=== PATIENT | female | born 1940 | race Caucasian/White ===

== ENCOUNTER 2018-05-17 10:06 | Emergency (ER) | payer MEDICARE, BC ==
[~2018-05-17] VITALS: Ht 162.6 cm; Wt 60.6 kg
[2018-05-17] MEDS ORDERED: HYDROcodone/acetaminophen 10/325mg tab PO ONE (10:35)
[2018-05-17] MEDS ORDERED: HYDR-565 PO (10:56)
[2018-05-17 11:27] VITALS: BP 168/75
== END 2018-05-17 11:32 | disposition home or self-care (01) ==
LOC: ER 10:07
DX: S40.011A Contusion of right shoulder, initial encounter (principal); S20.211A Contusion of right front wall of thorax, initial encounter; I10 Essential (primary) hypertension; Z79.899 Other long term (current) drug therapy; W18.39XA Other fall on same level, initial encounter; Y93.89 Activity, other specified; Y92.89 Other specified places as the place of occurrence of the external cause; Y99.8 Other external cause status
CPT/HCPCS: 73030; 99284; A4565

== ENCOUNTER 2018-07-22 20:49 | Emergency (ER) | payer MEDICARE, BC ==
[~2018-07-22] VITALS: Ht 167.6 cm; Wt 51.0 kg
[2018-07-22] MEDS ORDERED: aspirin 81mg tab.chew PO ONE (21:15)
[2018-07-22] MEDS ORDERED: diltiazem 5mg/ml 5ml inj. IV ONE (21:15)
[2018-07-22 21:22] LABS: BASOPHILS # (AUTO) 0.1 X10'3 (0-0.2); BASOPHILS % (AUTO) 0.7 % (0-1); EOSINOPHILS # (AUTO) 0.1 X10'3 (0-0.9); EOSINOPHILS % (AUTO) 2.1 % (0-6); HEMATOCRIT 41.7 % (35.0-45.0); HEMOGLOBIN 13.9 g/dl (12.0-16.0); LYMPHOCYTES # (AUTO) 2.2 X10'3 (1.1-4.8); LYMPHOCYTES % (AUTO) 31.5 % (21-51); MEAN CORPUSCULAR HEMOGLOBIN 30.4 PG (27.0-31.0); MEAN CORPUSCULAR HGB CONC 33.3 % (33.0-36.5); MEAN CORPUSCULAR VOLUME 91.3 FL (78-98); MEAN PLATELET VOLUME 7.2 FL (7.4-10.4); MONOCYTES # (AUTO) 0.6 X10'3 (0-0.9); NEUTROPHILS % (AUTO) 56.7 % (42-75); PLATELET COUNT 326 X10'3 (140-440); RED BLOOD COUNT 4.57 X10'6 (4.20-5.60); RED CELL DISTRIBUTION WIDTH 15.6 % (11.5-14.5)
[2018-07-22 21:41] LABS: ALANINE AMINOTRANSFERASE 23 U/L (12-78); ALBUMIN 4.6 G/DL (3.4-5.0); ALKALINE PHOSPHATASE 96 IU/L (46-116); ANION GAP 15 (8-16); ASPARTATE AMINO TRANSFERASE 25 U/L (10-37); BILIRUBIN,TOTAL 0.6 MG/DL (0.1-1.0); BLOOD UREA NITROGEN 8 MG/DL (7-18); BUN/CREATININE RATIO 10.5 (6.6-38.0); CALCIUM 10.2 MG/DL (8.5-10.1); CHLORIDE 96 MMOL/L (99-107); CREATININE 0.76 MG/DL (0.40-0.90); GLUCOSE 129 MG/DL (70-104); MAGNESIUM 1.8 MG/DL (1.5-2.4); POTASSIUM 3.4 MMOL/L (3.5-5.1); SODIUM 134 MMOL/L (135-145); TOTAL CARBON DIOXIDE 23.2 MMOL/L (24-32); TOTAL PROTEIN 9.1 G/DL (6.4-8.2); eGFR 73 ML/MIN
[2018-07-22 21:48] LABS: PARTIAL THROMBOPLASTIN TIME 26 SECONDS (22-32); PROTHROMBIN TIME 10.4 SECONDS (9.0-12.0)
[2018-07-22] MEDS ORDERED: metoprolol tartrate 50mg tablet PO ONE (22:35)
[2018-07-22] MEDS ORDERED: magnesium oxide 400mg tablet PO ONE (22:35)
[2018-07-22] MEDS ORDERED: potassium Cl 20 mEq SR tablet PO ONE (22:35)
[2018-07-22] MEDS ORDERED: potassium 10mEq/100ml NS w/LIDOcaine (10mg/bag) IV ONE (22:35)
[2018-07-22] MEDS: magnesium 1gm/100ml D5W IVPB 100 ML IV SCH ×2 (22:44→23:35)
[2018-07-22] MEDS: diphenhydrAMINE 50 mg/ml inj IV ONE ×2 (22:47→23:52)
[2018-07-22 23:08] VITALS: BP 195/106
== END 2018-07-23 00:22 | disposition home or self-care (01) ==
LOC: ER 20:50
DX: R00.2 Palpitations (principal); I10 Essential (primary) hypertension; E87.6 Hypokalemia; Z87.891 Personal history of nicotine dependence
CPT/HCPCS: 36415; 71045; 80053; 83735; 84484; 85025; 85610; 85730; 93005; 96365; 96375; 99285; J1200; J3480; J3490

== ENCOUNTER 2021-02-11 09:45 | Emergency (ER) | payer MEDICARE, BC ==
[~2021-02-11] VITALS: Ht 165.1 cm; Wt 52.8 kg
[2021-02-11 12:00] LABS: CLARITY,URINE CLEAR (Clear); COLOR,URINE YELLOW (Yellow); GLUCOSE, URINE NEGATIVE (Neg); KETONES,URINE NEGATIVE (Neg); LEUKOCYTE ESTERASE ,URINE TRACE (Neg); NITRITES, URINE NEGATIVE (Neg); OCCULT BLOOD,URINE NEGATIVE (Neg); PH,URINE 5.5 (4.8-8.0); PROTEIN,URINE NEGATIVE (Neg); UROBILINOGEN,URINE 0.2 E.U/dL (0.2-1.0)
[2021-02-11 12:02] LABS: UA COLLECTION TYPE CLN CATCH MIDSTREAM
[2021-02-11 12:03] LABS: BASOPHILS % (AUTO) 0.9 % (0-1); EOSINOPHILS % (AUTO) 0.4 % (0-6); HEMATOCRIT 40.5 % (35.0-45.0); HEMOGLOBIN 13.3 g/dl (12.0-16.0); LYMPHOCYTES # (AUTO) 1.3 X10'3 (1.1-4.8); LYMPHOCYTES % (AUTO) 28.3 % (21-51); MEAN CORPUSCULAR HEMOGLOBIN 28.2 PG (27.0-31.0); MEAN CORPUSCULAR HGB CONC 32.8 g/dL (33.0-36.5); MEAN CORPUSCULAR VOLUME 85.9 FL (78-98); MEAN PLATELET VOLUME 7.4 FL (7.4-10.4); MONOCYTES # (AUTO) 0.5 X10'3 (0-0.9); MONOCYTES % (AUTO) 10.5 % (2-12); NEUTROPHILS # (AUTO) 2.8 X10'3 (1.8-7.7); NEUTROPHILS % (AUTO) 59.9 % (42-75); PLATELET COUNT 320 X10'3 (140-440); RED BLOOD COUNT 4.71 X10'6 (4.20-5.60); RED CELL DISTRIBUTION WIDTH 17.6 % (11.5-14.5); WHITE BLOOD COUNT 4.6 X10'3 (4.5-11.0)
[2021-02-11 12:08] LABS: SQUAMOUS EPITHELIAL CELL,UR MANY /LPF (FEW)
[2021-02-11 12:09] LABS: BACTERIA,URINE FEW /HPF (Neg)
[2021-02-11 12:10] LABS: RBC,URINE 0-2 /HPF (0-2)
[2021-02-11 12:13] VITALS: BP 195/91
[2021-02-11 12:13] LABS: TRANSITIONAL EPI CELLS,URINE FEW /HPF
[2021-02-11 12:16] LABS: ALANINE AMINOTRANSFERASE 23 U/L (12-78); ALBUMIN 4.4 G/DL (3.4-5.0); ALKALINE PHOSPHATASE 87 IU/L (46-116); ANION GAP 15 (8-16); ASPARTATE AMINO TRANSFERASE 25 U/L (10-37); BILIRUBIN,TOTAL 0.5 MG/DL (0.1-1.0); BLOOD UREA NITROGEN 9 MG/DL (7-18); BUN/CREATININE RATIO 10.6 (6.6-38.0); CALCIUM 9.4 MG/DL (8.5-10.1); CHLORIDE 96 MMOL/L (99-107); CREATININE 0.85 MG/DL (0.40-0.90); GLUCOSE 141 MG/DL (70-104); LIPASE 76 U/L (73-393); POTASSIUM 3.9 MMOL/L (3.5-5.1); SODIUM 134 MMOL/L (135-145); TOTAL CARBON DIOXIDE 23.3 MMOL/L (24-32); TOTAL PROTEIN 8.9 G/DL (6.4-8.2); eGFR 64 ML/MIN
--- NOTE | 2021-02-11 12:30 | NUR ---
pt states deathly afraid of bp cuffs and being at the hospital with all the beeps. pt tbp cuff taken off and pulse ox removed.
--- NOTE | 2021-02-11 12:35 | NUR ---
pt stated allergic to certain kinds of dye and when asked what kind. pt unable to tell me. notified provider Good and stated will speak to pt.
== END 2021-02-11 12:58 | disposition home or self-care (01) ==
LOC: ER 09:45
DX: R19.7 Diarrhea, unspecified (principal); I10 Essential (primary) hypertension
CPT/HCPCS: 36415; 80053; 81001; 83690; 83735; 85025; 99283

== ENCOUNTER 2023-07-12 06:11 | Inpatient (IN) | payer MEDICARE, BC ==
[2023-07-06 15:14] LABS: MEAN PLATELET VOLUME 7.6 FL (7.4-10.4); RED CELL DISTRIBUTION WIDTH 21.4 % (11.5-14.5)
[2023-07-06 15:16] LABS: MEAN CORPUSCULAR HEMOGLOBIN 22.7 PG (27.0-31.0); MEAN CORPUSCULAR HGB CONC 31.1 g/dL (33.0-36.5); PRE OP HEMATOCRIT 31.7 % (35.0-45.0); PRE OP PLATELET COUNT 347 X10'3 (140-440); PRE OP WHITE BLOOD COUNT 6.3 10'3 (4.8-10.8); RED BLOOD COUNT 4.35 X10'6 (4.20-5.60)
[2023-07-06 15:21] LABS: PRE OP HEMOGLOBIN 9.9 g/dL (12.0-16.0)
[2023-07-06 15:29] LABS: ALBUMIN 3.2 G/DL (3.4-5.0); ALBUMIN/GLOBULIN RATIO 0.8 (1.1-1.5); ALKALINE PHOSPHATASE 90 IU/L (46-116); BLOOD UREA NITROGEN 5 MG/DL (7-18); BUN/CREATININE RATIO 6.9 (10.0-20.0); CHLORIDE 96 MMOL/L (99-107); CREATININE 0.72 MG/DL (0.40-0.90); PRE OP ALT 17 U/L (30-65); PRE OP ANION GAP 9 (8-16); PRE OP AST 17 U/L (10-37); PRE OP BILIRUB, TOTAL 0.7 MG/DL (0.0-1.0); PRE OP GLUCOSE 123 MG/DL (70-104); PRE OP POTASSIUM 4.6 MMOL/L (3.4-5.1); TOTAL CARBON DIOXIDE 24.2 MMOL/L (24-32); eGFR 77 ML/MIN
[2023-07-06 15:30] LABS: PRE OP SODIUM 129 MMOL/L (135-145)
[2023-07-06 17:58] LABS: TOTAL CELLS COUNTED 100
[2023-07-06 17:59] LABS: ANISOCYTOSIS 3+; MICROCYTOSIS 1+; PLATELET ESTIMATE NORMAL; POLYCHROMASIA 1+
[2023-07-06 18:00] LABS: HYPOCHROMASIA 1+
[2023-07-12] VITALS (39 sets, daily range): BP systolic 110–169; BP diastolic 46–79; PULSE 58–84; RESP 10–21; TEMP 96.9–98.2; O2SAT 77–99
[~2023-07-12] VITALS: Ht 152.4 cm; Wt 43.1 kg
[~2023-07-12 06:11] MED LIST: ACET-1084 PO; AMLO10TA48 PO; APIX2.5T PO; ATOR40TA72 PO; CLOP-32 PO; DOCUMENT DATE & TIME OF BETA-BLOCKER PO ONE; HYDR-3968 PO; LISI20TA28 PO; MAGN400C PO; METO-395 PO; PANT40TA54 PO; POTA-206 PO; cefazolin 2gm/D5W 100mL 100 ML IV ONE; dextrose 5%-water 1,000 ML IV ONE; famotidine 20mg tablet PO ONE; nitroPRUSSIDE (NIPRIDE) (200MCG/ML) 100ML Drip IV SCH; phenylephrine inj 50 MG in normal saline 250ml IV solN IV SCH; ringers solution, lacted 1,000 ML IV SCH
[2023-07-12] MEDS ORDERED: ondansetron/PF 4mg/2ml inj IV PRN ×2 (07:25→07:35)
[2023-07-12] MEDS ORDERED: morphine 4 MG/ML inj SYRINge IV PRN (07:25)
[2023-07-12] MEDS ORDERED: morphine 2 MG/ML inj. syringe IV PRN (07:25)
[2023-07-12] MEDS ORDERED: PHENYLephrine 10mg/ml inj. 100 MG in normal saline 250ml IV soln 240 ML IV SCH (07:25)
[2023-07-12] MEDS ORDERED: nitroPRUSSIDE sod inj. 50 MG in dextrose 5%-water 248 ML IV SCH (07:25)
[2023-07-12] MEDS ORDERED: ringers solution, lacted 1,000 ML IV SCH (07:25)
[2023-07-12] MEDS ORDERED: hydrALAZINE 20mg/ml inj. IV PRN (07:25)
[2023-07-12] MEDS ORDERED: enalaprilat dihydrate 2.5mg/2ml vial IV PRN (07:25)
[2023-07-12] MEDS ORDERED: fentaNYL/PF 50MCG/1 ML 2ML syringe IV PRN ×2 (07:25)
[2023-07-12 07:28] LABS: MEAN PLATELET VOLUME 8.1 FL (7.4-10.4); RED CELL DISTRIBUTION WIDTH 23.8 % (11.5-14.5); WHITE BLOOD COUNT 8.1 X10'3 (4.5-11.0)
[2023-07-12 07:31] LABS: APTT 30 SECONDS (22-32); INR 1.1 INR; PROTHROMBIN TIME 11.8 SECONDS (9.0-12.0)
[2023-07-12 07:34] LABS: HEMATOCRIT 33.8 % (35.0-45.0); HEMOGLOBIN 10.7 g/dl (12.0-16.0); MEAN CORPUSCULAR HEMOGLOBIN 23.5 PG (27.0-31.0); MEAN CORPUSCULAR HGB CONC 31.7 g/dL (33.0-36.5); MEAN CORPUSCULAR VOLUME 74.3 FL (78-98); PLATELET COUNT 308 X10'3 (140-440); RED BLOOD COUNT 4.56 X10'6 (4.20-5.60)
[2023-07-12 07:35] LABS: ALANINE AMINOTRANSFERASE 14 U/L (12-78); ALBUMIN 3.4 G/DL (3.4-5.0); ALBUMIN/GLOBULIN RATIO 0.9 (1.1-1.5); ALKALINE PHOSPHATASE 91 IU/L (46-116); ANION GAP 8 (8-16); ASPARTATE AMINO TRANSFERASE 14 U/L (10-37); BILIRUBIN,TOTAL 0.5 MG/DL (0.1-1.0); BLOOD UREA NITROGEN 9 MG/DL (7-18); BUN/CREATININE RATIO 10.7 (10.0-20.0); CALCIUM 9.3 MG/DL (8.5-10.1); CHLORIDE 98 MMOL/L (99-107); CREATININE 0.84 MG/DL (0.40-0.90); GLUCOSE 119 MG/DL (70-104); POTASSIUM 4.1 MMOL/L (3.5-5.1); SODIUM 131 MMOL/L (135-145); TOTAL CARBON DIOXIDE 25.4 MMOL/L (24-32); TOTAL PROTEIN 7.2 G/DL (6.4-8.2); eCRCL 34 ML/MIN; eGFR 65 ML/MIN
[2023-07-12] MEDS ORDERED: naloxone 0.4 mg/ml inj IV PRN (07:35)
[2023-07-12] MEDS ORDERED: vancomycin/NS 1 GM ADD-VANTAGE 250 ML IV ONE (08:05)
[2023-07-12] MEDS ORDERED: LIDOcaine 1%/PF 5ML 10 MG/ML VIAL ONE (08:25)
[2023-07-12] MEDS ORDERED: heparin 10,000 units/1 ML INJ ONE (08:26)
[2023-07-12 08:28] LABS: ANISOCYTOSIS 3+; HYPOCHROMASIA 2+; LARGE PLATELETS FEW; MICROCYTOSIS 1+; PLATELET ESTIMATE NORMAL; TOTAL CELLS COUNTED 100
[2023-07-12 08:29] LABS: BURR CELLS FEW; ELLIPTOCYTES FEW; SCHISTOCYTES FEW; TARGET CELLS FEW; TEAR DROP CELLS FEW
[2023-07-12] MEDS ORDERED: sevoflurane 250ml liquid IH ONE (08:52)
[2023-07-12] MEDS ORDERED: fentaNYL/PF 50MCG/1 ML 2ML syringe ONE (09:01)
[2023-07-12] MEDS ORDERED: midazolam 1 mg/ML 2ml injection ONE (09:01)
[2023-07-12] MEDS ORDERED: rocuronium 10mg/ml inj IV ONE (09:21)
[2023-07-12] MEDS ORDERED: propofol inj 20 ML IV ONE (09:21)
[2023-07-12] MEDS ORDERED: LIDOcaine 2% (20mg/ml) 5ml vial ONE (09:21)
[2023-07-12] MEDS ORDERED: ondansetron/PF 4mg/2ml inj ONE (09:23)
[2023-07-12] MEDS ORDERED: dexamethasone sod phosphate 4mg/ml inj. ONE (09:23)
[2023-07-12] MEDS ORDERED: heparin 1,000unit/ml 10ml vial 10 ML ONE (09:25)
[2023-07-12] MEDS ORDERED: sugammadex 200mg/2ml injection IV ONE (09:41)
--- NOTE | 2023-07-12 10:44 | NUR ---
Received from OR via [facility]OS[facility] BED TO RR 9, accompanied by Anesthesiologist DEIDRE and report given by Anesthesiologist. PT PRESENTS ON 10L VIA MASK. LEFT NECK DRESSING, CDI NOT NECK DISTENTION NOTED. ART LINE TO RIGHT WRIST, 20 G PIV TO RIGHT FA. ELAYNE/NIPRIDE RUNNING AT 0.029 MCG/KG/MIN. LR RUNNING AT 100 ML/HR. PT IS A/OX4, NEUROLOGICALLY INTACT. BILATERAL RADIAL PULSES AND BILATERAL PEDAL PULSES PALPABLE. PT DOES NOT C/O PAIN OR NAUSEA AT THIS TIME. SCD'S ON. WILL CONTINUE TO ASSESS.
--- NOTE | 2023-07-12 13:00 | NUR ---
FAXED MED REC TO PHARMACY.
[2023-07-12] MEDS ORDERED: non-formulary drug (Hydrocodone Bit/Acetaminophen (Hydrocodon-Acetaminoph 7.5-325) 1 TAB) PO PRN (13:35)
[2023-07-12] MEDS ORDERED: non-formulary drug (Acetaminophen 1 TAB) PO PRN (13:35)
--- NOTE | 2023-07-12 15:14 | NUR ---
PT STABLE FOR TRANSFER TO CICU ROOM 2006. GAVE REPORT TO NURSE, ALL QUESTIONS, COMMENTS, AND CONCERNS WERE ANSWERED AT THIS TIME. PT WAS TRANSFERRED ON TRANSPORT MONITOR. LEFT NECK DRESSING CDI WITH FELIPA DRAIN INTACT. PATIENT HOOKED UP TO VITALS, VSS. PT REMAINS NEUROLOGICALLY INTACT. PATIENT STATES TOLERABLE PAIN AND NO NAUSEA. PRIMARY NURSE AWARE OF TRANSFER. Addendum: 07/12/23 at 1912 by Guadalupe Mackenzie RN ELSIE BAKER IN ROOM 2006, HE WILL RECORD FELIPA OUTPUT
--- NOTE | 2023-07-12 15:18 | NUR ---
Patient received in room 2006.
--- NOTE | 2023-07-12 16:15 | NUR ---
PER DR PEDERSON, GIVE 81MG ASA TODAY ONLY. PLAVIX AND ELIQUIS TO RESUME AFTER D/C TO HOME.
[2023-07-12] MEDS ORDERED: aspirin 81mg, enteric-coated 1 TAB TABLET.DR PO ONE (16:20)
--- NOTE | 2023-07-12 17:17 | NUR ---
Frequent pvc's, called Dr. Bustamante ordered cmp and cbc.
[2023-07-12 17:48] LABS: HEMOGLOBIN 9.7 g/dl (12.0-16.0); MEAN PLATELET VOLUME 7.6 FL (7.4-10.4); RED BLOOD COUNT 4.13 X10'6 (4.20-5.60)
[2023-07-12 17:50] LABS: HEMATOCRIT 30.7 % (35.0-45.0); MEAN CORPUSCULAR HEMOGLOBIN 23.5 PG (27.0-31.0); MEAN CORPUSCULAR HGB CONC 31.6 g/dL (33.0-36.5); MEAN CORPUSCULAR VOLUME 74.3 FL (78-98); PLATELET COUNT 300 X10'3 (140-440); RED CELL DISTRIBUTION WIDTH 24.1 % (11.5-14.5)
[2023-07-12 17:58] LABS: ALANINE AMINOTRANSFERASE 12 U/L (12-78); ALBUMIN/GLOBULIN RATIO 0.9 (1.1-1.5); ALKALINE PHOSPHATASE 80 IU/L (46-116); ANION GAP 6 (8-16); ASPARTATE AMINO TRANSFERASE 20 U/L (10-37); BILIRUBIN,TOTAL 0.4 MG/DL (0.1-1.0); BLOOD UREA NITROGEN 7 MG/DL (7-18); BUN/CREATININE RATIO 10.4 (10.0-20.0); CALCIUM 8.6 MG/DL (8.5-10.1); CHLORIDE 99 MMOL/L (99-107); CREATININE 0.67 MG/DL (0.40-0.90); GLUCOSE 159 MG/DL (70-104); POTASSIUM 4.5 MMOL/L (3.5-5.1); SODIUM 130 MMOL/L (135-145); TOTAL CARBON DIOXIDE 24.9 MMOL/L (24-32); TOTAL PROTEIN 6.5 G/DL (6.4-8.2); eCRCL 43 ML/MIN; eGFR 84 ML/MIN
--- NOTE | 2023-07-12 18:20 | NUR ---
Problems reprioritized. Patient report given, questions answered & plan of care reviewed with Melly ZIMMERMAN.
--- NOTE | 2023-07-12 18:21 | NUR ---
Patient refused dinner, "it's just fluids anyway".
--- NOTE | 2023-07-12 18:23 | NUR ---
Patient in room CICU 2006. I have received report from Genesis ZIMMERMAN and had the opportunity to ask questions and assume patient care.
[2023-07-12 18:26] LABS: TOTAL CELLS COUNTED 100
[2023-07-12 18:27] LABS: ANISOCYTOSIS 3+; HYPOCHROMASIA 2+; MICROCYTOSIS 1+; PLATELET ESTIMATE NORMAL; POIKILOCYTOSIS 1+
[2023-07-12 18:28] LABS: ELLIPTOCYTES FEW; LARGE PLATELETS FEW; TEAR DROP CELLS FEW
[2023-07-12] MEDS: HYDROcodone/acetaminophen 10/325mg tab PO PRN (18:49)
[2023-07-12] MEDS: magnesium oxide 400mg tablet PO SCH (18:50)
[2023-07-12] MEDS: potassium chloride 10mEq ER tablet PO SCH (18:50)
[2023-07-12] MEDS ORDERED: apixaban 2.5mg tablet PO SCH (20:00)
[2023-07-13] VITALS (17 sets, daily range): BP systolic 106–167; BP diastolic 39–78; PULSE 59–80; RESP 10–20; TEMP 98.2–98.3; O2SAT 93–98
[2023-07-13] MEDS: HYDROcodone/acetaminophen 10/325mg tab PO PRN (00:36)
[2023-07-13 04:07] LABS: HEMOGLOBIN 9.3 g/dl (12.0-16.0); WHITE BLOOD COUNT 5.1 X10'3 (4.5-11.0)
[2023-07-13 04:11] LABS: HEMATOCRIT 29.4 % (35.0-45.0); MEAN CORPUSCULAR HEMOGLOBIN 23.3 PG (27.0-31.0); MEAN CORPUSCULAR HGB CONC 31.5 g/dL (33.0-36.5); MEAN PLATELET VOLUME 8.1 FL (7.4-10.4); PLATELET COUNT 315 X10'3 (140-440); RED BLOOD COUNT 3.97 X10'6 (4.20-5.60); RED CELL DISTRIBUTION WIDTH 24.6 % (11.5-14.5)
[2023-07-13 04:17] LABS: ALBUMIN 2.8 G/DL (3.4-5.0); ANION GAP 6 (8-16); BLOOD UREA NITROGEN 9 MG/DL (7-18); BUN/CREATININE RATIO 14.5 (10.0-20.0); CALCIUM 8.8 MG/DL (8.5-10.1); CHLORIDE 100 MMOL/L (99-107); CREATININE 0.62 MG/DL (0.40-0.90); GLUCOSE 113 MG/DL (70-104); POTASSIUM 4.6 MMOL/L (3.5-5.1); SODIUM 131 MMOL/L (135-145); TOTAL CARBON DIOXIDE 25.1 MMOL/L (24-32); eCRCL 46 ML/MIN; eGFR > 90 ML/MIN
[2023-07-13 04:50] LABS: ANISOCYTOSIS 3+; HYPOCHROMASIA 2+; MICROCYTOSIS 1+; PLATELET ESTIMATE NORMAL; TOTAL CELLS COUNTED 100
[2023-07-13 04:53] LABS: BURR CELLS FEW; ELLIPTOCYTES FEW
[2023-07-13 04:54] LABS: LARGE PLATELETS FEW; POIKILOCYTOSIS 1+; TARGET CELLS FEW
--- NOTE | 2023-07-13 06:23 | NUR ---
Problems reprioritized. Patient report given, questions answered & plan of care reviewed with oncoming shift RN.
--- NOTE | 2023-07-13 06:30 | NUR ---
Assumed care of pt after PM report. Pt is comfortable and denies pain. IV Joel continues to inifuse; staable BP.
[2023-07-13] MEDS ORDERED: pantoprazole 40mg Tablet.DR PO SCH (08:00)
[2023-07-13] MEDS ORDERED: aspirin 81mg, enteric-coated 1 TAB TABLET.DR PO SCH (08:00)
[2023-07-13] MEDS ORDERED: atorvastatin 20mg tablet PO SCH (08:00)
[2023-07-13] MEDS ORDERED: metoprolol succinate 25mg (24-HOUR) SR. Tablet PO SCH (08:00)
[2023-07-13] MEDS ORDERED: amLODIPine 5mg tablet PO SCH (08:00)
[2023-07-13] MEDS ORDERED: lisinopril 20mg tablet PO SCH (08:00)
[2023-07-13] MEDS ORDERED: clopidogrel 75mg tablet PO SCH (08:00)
[2023-07-13] MEDS: potassium chloride 10mEq ER tablet PO SCH (08:30)
[2023-07-13] MEDS: magnesium oxide 400mg tablet PO SCH (08:36)
--- NOTE | 2023-07-13 08:47 | NUR ---
Pt has been OOB to commode with help from urban forester. Tolerated it well.
--- NOTE | 2023-07-13 08:51 | NUR ---
Surgeon into see pt. To go home this afternoon. Joel to be weaned off, and A-line to be removed this AM. Pt is finishing breakfast.
--- NOTE | 2023-07-13 10:00 | NUR ---
Pt OOB to commode w/ 1 assist and voided 350 clear, yellow urine. Returned to bed.
[2023-07-13] MEDS ORDERED: loperamide 2mg capsule PO ONE ×2 (11:25→12:55)
--- NOTE | 2023-07-13 12:30 | NUR ---
FELIPA drained dc'd, friend is at bedside, and pt is eating lunch.
--- NOTE | 2023-07-13 12:44 | NUR ---
A-line dc'd at 1130 and pt OOB to chair. FELIPA mas was dc'd at 1215, and at 1230 her friend arrived. Pt is waiting for lunch, a walk and DC home.. VSS.
--- NOTE | 2023-07-13 13:30 | NUR ---
Pt ambulated approx 50 ft and tolerated it well. She was medicated with Imodium, dressed herself, SL was dc'd with cath intact,and was wheeled out to the car, after signing DC instructions with understanding.
--- NOTE | 2023-07-13 14:40 | NUR ---
WOC note: Per medical records, this is an 83 year old female who is S/P LT carotid endarterectomy R/T carotid stenosis. Past Medical History of Raynaud's, scleroderma, arthritis, sjogrens, hypertension, CAD s/p PTCA with stenting, carotid artery stenosis. Patient is followed at our wound clinic. Report received by Alisha Byrne RN WOCN to assess wound/skin. Most recent labs WBC 5.1, H&H 9.3 & 29.4, BUN 9, glucose 113, albumin 2.8. Patient is nasal swab MRSA positive. Consult received however the patient was discharged home prior to WOC assessment. Notified [facility] wound center via Christine. Pt D/C home.
== END 2023-07-13 14:08 | disposition home or self-care (01) | DRG 38 ==
LOC: PAS IN 06:11 → CICU 2S 15:00
PROVIDERS: ADMIT Surgery; ATTEND Surgery
PROC: 03UN0KZ Supplement Left External Carotid Artery with Nonautologous Tissue Substitute, Open Approach (ICD-10-PCS; 2023-07-12)
PROC: 03CN0ZZ Extirpation of Matter from Left External Carotid Artery, Open Approach (ICD-10-PCS; principal; 2023-07-12 08:52)
DX: I65.22 Occlusion and stenosis of left carotid artery (principal); E44.1 Mild protein-calorie malnutrition; I13.0 Hypertensive heart and chronic kidney disease with heart failure and stage 1 through stage 4 chronic kidney disease, or unspecified chronic kidney disease; Z68.1 Body mass index [BMI] 19.9 or less, adult; I50.9 Heart failure, unspecified; I48.91 Unspecified atrial fibrillation; N18.9 Chronic kidney disease, unspecified; I25.10 Atherosclerotic heart disease of native coronary artery without angina pectoris; K21.9 Gastro-esophageal reflux disease without esophagitis; F41.1 Generalized anxiety disorder; M19.90 Unspecified osteoarthritis, unspecified site; I08.2 Rheumatic disorders of both aortic and tricuspid valves; E78.5 Hyperlipidemia, unspecified; Z87.891 Personal history of nicotine dependence; Z82.49 Family history of ischemic heart disease and other diseases of the circulatory system; Z90.710 Acquired absence of both cervix and uterus; Z88.5 Allergy status to narcotic agent; Z88.8 Allergy status to other drugs, medicaments and biological substances; Z91.040 Latex allergy status; Z91.041 Radiographic dye allergy status; I25.2 Old myocardial infarction
CPT/HCPCS: 36415; 80048; 80053; 85007; 85025; 85610; 85730; 86885; 86900; 86901; 86920; 87081; 95813; 95816; A4615; A4618; A6258; A6449; A7000; G0378; J0690; J1100; J1644; J2250; J2270; J2370; J2405; J2704; J3010; J3370; J3490; J7040; J7050; J7070; J7120

== ENCOUNTER 2023-11-17 06:44 | Inpatient (IN) | payer MEDICARE, BC ==
[2023-11-14 12:33] LABS: BASOPHILS % (AUTO) 0.6 % (0-1); EOSINOPHILS # (AUTO) 0.1 X10'3 (0-0.9); EOSINOPHILS % (AUTO) 1.4 % (0-6); LYMPHOCYTES # (AUTO) 1.2 X10'3 (1.1-4.8); LYMPHOCYTES % (AUTO) 17.1 % (21-51); MEAN CORPUSCULAR HGB CONC 32.4 g/dL (33.0-36.5); MEAN CORPUSCULAR VOLUME 83.4 FL (78-98); MEAN PLATELET VOLUME 7.5 FL (7.4-10.4); MONOCYTES # (AUTO) 0.7 X10'3 (0-0.9); MONOCYTES % (AUTO) 9.3 % (2-12); NEUTROPHILS # (AUTO) 5.2 X10'3 (1.8-7.7); NEUTROPHILS % (AUTO) 71.6 % (42-75); PRE OP HEMATOCRIT 32.4 % (35.0-45.0); PRE OP PLATELET COUNT 316 X10'3 (140-440); PRE OP WHITE BLOOD COUNT 7.2 10'3 (4.8-10.8); RED BLOOD COUNT 3.89 X10'6 (4.20-5.60); RED CELL DISTRIBUTION WIDTH 16.3 % (11.5-14.5)
[2023-11-14 12:37] LABS: PRE OP HEMOGLOBIN 10.5 g/dL (12.0-16.0)
[2023-11-14 12:54] LABS: ALBUMIN/GLOBULIN RATIO 0.8 (1.1-1.5); ALKALINE PHOSPHATASE 108 IU/L (46-116); BLOOD UREA NITROGEN 13 MG/DL (7-18); CALCIUM 8.5 MG/DL (8.5-10.1); CHLORIDE 101 MMOL/L (99-107); CREATININE 0.59 MG/DL (0.40-0.90); PRE OP ALT 15 U/L (30-65); PRE OP ANION GAP 7 (8-16); PRE OP AST 15 U/L (10-37); PRE OP BILIRUB, TOTAL 0.5 MG/DL (0.0-1.0); PRE OP GLUCOSE 119 MG/DL (70-104); PRE OP POTASSIUM 3.4 MMOL/L (3.4-5.1); PRE OP SODIUM 138 MMOL/L (135-145); TOTAL CARBON DIOXIDE 30.2 MMOL/L (24-32); TOTAL PROTEIN 6.9 G/DL (6.4-8.2); eGFR > 90 ML/MIN
[2023-11-17] VITALS (23 sets, daily range): BP systolic 93–182; BP diastolic 58–85; PULSE 87–117; RESP 11–18; TEMP 97.4–98.8; O2SAT 88–100
[~2023-11-17] VITALS: Ht 165.1 cm; Wt 40.3 kg
[2023-11-17] MEDS: ringers solution, lacted 1,000 ML IV SCH ×2 (05:00→11:35)
[2023-11-17] MEDS: famotidine 20mg tablet PO ONE (05:30)
[2023-11-17] MEDS: DOCUMENT DATE & TIME OF BETA-BLOCKER PO ONE (05:30)
[2023-11-17] MEDS: cefazolin 2gm/D5W 100mL 100 ML IV ONE (05:30)
[~2023-11-17 06:44] MED LIST changes: -ACET-1084 PO; -AMLO10TA48 PO; +AMLO5TAB16 PO; -CLOP-32 PO; -DOCUMENT DATE & TIME OF BETA-BLOCKER PO ONE; +GABA-530 PO; +HYDR-3965 PO; -HYDR-3968 PO; -MAGN400C PO; -PANT40TA54 PO; -POTA-206 PO; -cefazolin 2gm/D5W 100mL 100 ML IV ONE; -dextrose 5%-water 1,000 ML IV ONE; -famotidine 20mg tablet PO ONE; -nitroPRUSSIDE (NIPRIDE) (200MCG/ML) 100ML Drip IV SCH; -phenylephrine inj 50 MG in normal saline 250ml IV solN IV SCH; -ringers solution, lacted 1,000 ML IV SCH
[2023-11-17] MEDS ORDERED: aminophylline inj. 0 ML IV ONE (08:57)
[2023-11-17] MEDS: regadenoson 0.4mg/5ml syringe IV ONE (09:00)
[2023-11-17 10:07] LABS: PRE OP PARTIAL THROMB. TIME 28 SECONDS (22-32); PROTHROMBIN TIME 11.2 SECONDS (9.0-12.0)
[2023-11-17] MEDS ORDERED: midazolam 1 mg/ML 2ml injection ONE (10:51)
[2023-11-17] MEDS ORDERED: fentaNYL/PF 50MCG/1 ML 2ML syringe ONE ×2 (10:51→13:19)
[2023-11-17] MEDS ORDERED: dexamethasone sod phosphate 4mg/ml inj. ONE (10:52)
[2023-11-17] MEDS ORDERED: LIDOcaine 2% (20mg/ml) 5ml vial ONE (10:52)
[2023-11-17] MEDS ORDERED: ondansetron/PF 4mg/2ml inj ONE (10:52)
[2023-11-17] MEDS ORDERED: propofol inj 20 ML IV ONE (10:52)
[2023-11-17] MEDS ORDERED: rocuronium 10mg/ml inj IV ONE (10:52)
[2023-11-17] MEDS ORDERED: glycopyrrolate 0.2mg/ml inj ONE (11:30)
[2023-11-17] MEDS ORDERED: sevoflurane 250ml liquid IH ONE (11:30)
[2023-11-17] MEDS ORDERED: neostigmine methylsulfate 1 MG/ML 10ml vial ONE (11:30)
[2023-11-17] MEDS ORDERED: fentaNYL/PF 50MCG/1 ML 2ML syringe IV PRN ×2 (11:35)
[2023-11-17] MEDS ORDERED: labetalol 20mg/4ml (5mg/ml) syringe IV PRN (11:35)
[2023-11-17] MEDS ORDERED: morphine 4 MG/ML inj SYRINge IV PRN (11:35)
[2023-11-17] MEDS ORDERED: hydrALAZINE 20mg/ml inj. IV PRN (11:35)
[2023-11-17] MEDS ORDERED: MIDAZolam 1 MG/ML 5ML VIAL ONE (11:42)
[2023-11-17] MEDS ORDERED: albumin (Human) 5% 250ml 750 ML IV ONE (12:00)
[2023-11-17] MEDS ORDERED: albumin (Human) 5% 250ml 250 ML IV ONE ×3 (12:02→16:02)
[2023-11-17] MEDS ORDERED: phenylephrine 10mg/ml inj. -priapism dosing ONE (12:04)
[2023-11-17] MEDS ORDERED: heparin 1,000unit/ml 10ml vial 10 ML ONE (12:46)
[2023-11-17] MEDS ORDERED: vancomycin 1,000mg inj ONE (12:55)
[2023-11-17] MEDS: heparin 10,000 units/1 ML INJ ONE (13:18)
[2023-11-17] MEDS ORDERED: iohexol 350MG/ML 100ml bottle IV ONE (13:25)
[2023-11-17] MEDS ORDERED: naloxone 0.4 mg/ml inj IV PRN (16:10)
[2023-11-17 16:40] LABS: ABG BASE EXCESS -0.9 mmol/L (-2.0-2.0); ABG HCO3 23.3 mmol/L (22.0-26.0); ABG OXYGEN SATURATION 99.7 % (94-97); ABG PCO2 (T) 35.1 mmHg (32.0-45.0); ABG PH (T) 7.438 (7.350-7.450); FCOHb 0.6 % (0.0-3.9); FHHb 0.3 % (0.0-5.0); FLOW 10 L/min; FMetHb 0.1 % (0.0-1.5); MODE MASK - SIMPLE; PATIENT TEMPERATURE 36.2
[2023-11-17] MEDS: morphine 2 MG/ML inj. syringe IV PRN (16:47)
[2023-11-17] MEDS: ondansetron/PF 4mg/2ml inj IV PRN (17:12)
[2023-11-17] MEDS ORDERED: heparin 10,000 units/1 ML INJ IV ONE (18:25)
[2023-11-17] MEDS: albumin (Human) 5% 250ml 250 ML IV ONE ×2 (18:25)
[2023-11-17 18:33] LABS: HEMATOCRIT 23.8 % (35.0-45.0); HEMOGLOBIN 7.6 g/dl (12.0-16.0); MEAN CORPUSCULAR HEMOGLOBIN 26.4 PG (27.0-31.0); MEAN CORPUSCULAR HGB CONC 31.8 g/dL (33.0-36.5); MEAN CORPUSCULAR VOLUME 83.2 FL (78-98); MEAN PLATELET VOLUME 8.2 FL (7.4-10.4); PLATELET COUNT 230 X10'3 (140-440); RED BLOOD COUNT 2.86 X10'6 (4.20-5.60); RED CELL DISTRIBUTION WIDTH 16.2 % (11.5-14.5); WHITE BLOOD COUNT 12.2 X10'3 (4.5-11.0)
[2023-11-17] MEDS: heparin 10,000 units/1 ML INJ IV ONE (18:36)
[2023-11-17] MEDS: apixaban 5mg tablet PO SCH (18:40)
[2023-11-17] MEDS: clopidogrel 75mg tablet PO SCH (18:41)
[2023-11-17] MEDS: albumin (Human) 5% 250ml 500 ML IV ONE (18:44)
[2023-11-17 19:01] LABS: INR 1.4 INR; PROTHROMBIN TIME 14.3 SECONDS (9.0-12.0)
[2023-11-17 19:16] LABS: APTT > 139 SECONDS (22-32)
[2023-11-17] MEDS: potassium CL 20mEq in D5-1/2NS 1,000 ML IV SCH (19:33)
[2023-11-17 19:55] LABS: BASOPHILS % (AUTO) 0.1 % (0-1); EOSINOPHILS % (AUTO) 0 % (0-6); LYMPHOCYTES # (AUTO) 0.4 X10'3 (1.1-4.8); LYMPHOCYTES % (AUTO) 3.9 % (21-51); MEAN CORPUSCULAR HEMOGLOBIN 27.6 PG (27.0-31.0); MEAN CORPUSCULAR HGB CONC 32.9 g/dL (33.0-36.5); MEAN CORPUSCULAR VOLUME 83.7 FL (78-98); MEAN PLATELET VOLUME 7.6 FL (7.4-10.4); MONOCYTES # (AUTO) 0.1 X10'3 (0-0.9); MONOCYTES % (AUTO) 1.1 % (2-12); NEUTROPHILS # (AUTO) 10.1 X10'3 (1.8-7.7); NEUTROPHILS % (AUTO) 94.9 % (42-75); PLATELET COUNT 178 X10'3 (140-440); RED BLOOD COUNT 2.14 X10'6 (4.20-5.60); RED CELL DISTRIBUTION WIDTH 16.1 % (11.5-14.5); WHITE BLOOD COUNT 10.6 X10'3 (4.5-11.0)
[2023-11-17 20:18] LABS: HEMATOCRIT 17.9 % (35.0-45.0); HEMOGLOBIN 5.9 g/dl (12.0-16.0)
[2023-11-17] MEDS ORDERED: heparin 10,000 units/1 ML INJ IV PRN (20:35)
[2023-11-17] MEDS: HYDROcodone/acetaminophen 5mg/325mg tablet PO PRN (21:14)
[2023-11-17] MEDS: PHENYLephrine 10mg/ml inj. 50 MG in normal saline 250ml IV soln 245 ML IV PRN (21:34)
[2023-11-17] MEDS: heparin 25,000 UNIT/250ml bag 250 ML IV PRN (23:17)
[2023-11-17] MEDS: HYDROmorphone inj. 0.5 MG/0.5 ML DISP.SYRIN IV PRN (23:31)
[2023-11-18] VITALS (36 sets, daily range): BP systolic 93–185; BP diastolic 43–90; PULSE 70–117; RESP 11–20; TEMP 98.6–98.7; O2SAT 22–100
[2023-11-18 02:11] LABS: APTT > 139 SECONDS (22-32)
[2023-11-18] MEDS: albumin (Human) 5% 250ml 250 ML IV ONE ×2 (03:22→04:28)
[2023-11-18] MEDS: ceFAZolin inj. 1,000 MG in dextrose 5%-water 50ml 50 ML IV SCH (03:23)
[2023-11-18 04:17] LABS: ALBUMIN 3.2 G/DL (3.4-5.0); ANION GAP 8 (8-16); BLOOD UREA NITROGEN 12 MG/DL (7-18); CALCIUM 7.4 MG/DL (8.5-10.1); CHLORIDE 108 MMOL/L (99-107); GLUCOSE 192 MG/DL (70-104); POTASSIUM 4.1 MMOL/L (3.5-5.1); SODIUM 139 MMOL/L (135-145); eCRCL 33 ML/MIN; eGFR 68 ML/MIN
[2023-11-18 04:42] LABS: BASOPHILS % (AUTO) 0.1 % (0-1); EOSINOPHILS % (AUTO) 0 % (0-6); HEMATOCRIT 24.5 % (35.0-45.0); HEMOGLOBIN 8.5 g/dl (12.0-16.0); LYMPHOCYTES # (AUTO) 0.7 X10'3 (1.1-4.8); LYMPHOCYTES % (AUTO) 6.7 % (21-51); MEAN CORPUSCULAR HEMOGLOBIN 29.2 PG (27.0-31.0); MEAN CORPUSCULAR HGB CONC 34.7 g/dL (33.0-36.5); MEAN CORPUSCULAR VOLUME 83.9 FL (78-98); MONOCYTES # (AUTO) 0.5 X10'3 (0-0.9); MONOCYTES % (AUTO) 5.2 % (2-12); NEUTROPHILS # (AUTO) 8.9 X10'3 (1.8-7.7); PLATELET COUNT 142 X10'3 (140-440); RED BLOOD COUNT 2.92 X10'6 (4.20-5.60); RED CELL DISTRIBUTION WIDTH 14.7 % (11.5-14.5); WHITE BLOOD COUNT 10.1 X10'3 (4.5-11.0)
[2023-11-18] MEDS: amLODIPine 5mg tablet PO SCH (11:34)
[2023-11-18] MEDS: metoprolol tartrate 12.5mg (1/2 tablet) PO SCH (11:34)
[2023-11-18] MEDS ORDERED: iohexol 350 MG/ML 50ML vial IV ONE (11:42)
[2023-11-18] MEDS ORDERED: iohexol 350MG/ML 100ml bottle IV ONE (11:42)
[2023-11-18] MEDS ORDERED: ondansetron/PF 4mg/2ml inj ONE (16:22)
[2023-11-18] MEDS ORDERED: cefazolin 2gm/D5W 100ml IV.soln IV ONE (16:22)
[2023-11-18] MEDS ORDERED: desflurane 240ml liquid inh. IH ONE (16:22)
[2023-11-18] MEDS ORDERED: dexamethasone sod phosphate 10mg/ml inj ONE (16:22)
[2023-11-18] MEDS ORDERED: sevoflurane 250ml liquid IH ONE (16:22)
[2023-11-18] MEDS ORDERED: fentaNYL/PF 50MCG/1 ML 2ML syringe ONE (16:32)
[2023-11-18] MEDS ORDERED: midazolam 1 mg/ML 2ml injection ONE (16:32)
[2023-11-18] MEDS ORDERED: ceFAZolin 1000mg inj ONE ×2 (17:19)
[2023-11-18] MEDS ORDERED: rocuronium 10mg/ml inj IV ONE (17:20)
[2023-11-18] MEDS ORDERED: propofol inj 20 ML IV ONE (18:02)
[2023-11-18] MEDS ORDERED: LIDOCAINE 1%/EPI 1:100,000 inj. 10 ML multi-dose vial ONE (18:23)
[2023-11-19] VITALS (26 sets, daily range): BP systolic 93–167; BP diastolic 41–148; PULSE 71–99; RESP 10–32; O2SAT 87–100
[2023-11-19 00:53] LABS: BASOPHILS % (AUTO) 0 % (0-1); EOSINOPHILS % (AUTO) 0 % (0-6); HEMATOCRIT 25.1 % (35.0-45.0); HEMOGLOBIN 8.5 g/dl (12.0-16.0); LYMPHOCYTES # (AUTO) 0.5 X10'3 (1.1-4.8); LYMPHOCYTES % (AUTO) 4.8 % (21-51); MEAN CORPUSCULAR HEMOGLOBIN 28.6 PG (27.0-31.0); MEAN CORPUSCULAR HGB CONC 33.9 g/dL (33.0-36.5); MEAN CORPUSCULAR VOLUME 84.5 FL (78-98); MONOCYTES # (AUTO) 0.4 X10'3 (0-0.9); MONOCYTES % (AUTO) 3.9 % (2-12); NEUTROPHILS # (AUTO) 8.7 X10'3 (1.8-7.7); NEUTROPHILS % (AUTO) 91.3 % (42-75); PLATELET COUNT 106 X10'3 (140-440); RED BLOOD COUNT 2.97 X10'6 (4.20-5.60); RED CELL DISTRIBUTION WIDTH 15.8 % (11.5-14.5); WHITE BLOOD COUNT 9.6 X10'3 (4.5-11.0)
[2023-11-19 00:55] LABS: ALBUMIN 2.6 G/DL (3.4-5.0); ANION GAP 9 (8-16); BLOOD UREA NITROGEN 8 MG/DL (7-18); BUN/CREATININE RATIO 10.7 (10.0-20.0); CALCIUM 6.6 MG/DL (8.5-10.1); CHLORIDE 107 MMOL/L (99-107); CREATININE 0.75 MG/DL (0.40-0.90); GLUCOSE 156 MG/DL (70-104); POTASSIUM 4.8 MMOL/L (3.5-5.1); SODIUM 139 MMOL/L (135-145); TOTAL CARBON DIOXIDE 23.2 MMOL/L (24-32); eCRCL 36 ML/MIN; eGFR 74 ML/MIN
[2023-11-19] MEDS: acetaminophen 1,000mg/100ml IV 100 ML IV ONE (01:00)
[2023-11-20] VITALS (28 sets, daily range): BP systolic 116–188; BP diastolic 42–89; PULSE 70–116; RESP 9–24; TEMP 99.5–99.6; O2SAT 90–99
[2023-11-20 00:25] LABS: BASOPHILS % (AUTO) 0.1 % (0-1); EOSINOPHILS % (AUTO) 0 % (0-6); LYMPHOCYTES # (AUTO) 1.2 X10'3 (1.1-4.8); LYMPHOCYTES % (AUTO) 11.9 % (21-51); MEAN CORPUSCULAR HEMOGLOBIN 29.2 PG (27.0-31.0); MEAN CORPUSCULAR HGB CONC 34.5 g/dL (33.0-36.5); MEAN CORPUSCULAR VOLUME 84.6 FL (78-98); MEAN PLATELET VOLUME 8.1 FL (7.4-10.4); MONOCYTES # (AUTO) 0.9 X10'3 (0-0.9); MONOCYTES % (AUTO) 9.6 % (2-12); NEUTROPHILS # (AUTO) 7.6 X10'3 (1.8-7.7); NEUTROPHILS % (AUTO) 78.4 % (42-75); PLATELET COUNT 94 X10'3 (140-440); RED BLOOD COUNT 2.09 X10'6 (4.20-5.60); RED CELL DISTRIBUTION WIDTH 15.9 % (11.5-14.5); WHITE BLOOD COUNT 9.8 X10'3 (4.5-11.0)
[2023-11-20 00:33] LABS: ALBUMIN 2.2 G/DL (3.4-5.0); ANION GAP 9 (8-16); BLOOD UREA NITROGEN 7 MG/DL (7-18); BUN/CREATININE RATIO 10.3 (10.0-20.0); CALCIUM 6.5 MG/DL (8.5-10.1); CHLORIDE 107 MMOL/L (99-107); CREATININE 0.68 MG/DL (0.40-0.90); GLUCOSE 127 MG/DL (70-104); POTASSIUM 4.6 MMOL/L (3.5-5.1); SODIUM 137 MMOL/L (135-145); TOTAL CARBON DIOXIDE 21.4 MMOL/L (24-32); eCRCL 39 ML/MIN; eGFR 82 ML/MIN
[2023-11-20 00:35] LABS: HEMOGLOBIN 6.1 g/dl (12.0-16.0)
[2023-11-20 00:36] LABS: HEMATOCRIT 17.7 % (35.0-45.0)
[2023-11-20 00:45] LABS: APTT 45 SECONDS (22-32); INR 1.7 INR; PROTHROMBIN TIME 17.3 SECONDS (9.0-12.0)
[2023-11-20 11:25] LABS: HEMATOCRIT 31.7 % (35.0-45.0); HEMOGLOBIN 10.6 g/dl (12.0-16.0); MEAN CORPUSCULAR HEMOGLOBIN 28.2 PG (27.0-31.0); MEAN CORPUSCULAR HGB CONC 33.5 g/dL (33.0-36.5); MEAN CORPUSCULAR VOLUME 84.2 FL (78-98); MEAN PLATELET VOLUME 8.3 FL (7.4-10.4); PLATELET COUNT 94 X10'3 (140-440); RED BLOOD COUNT 3.76 X10'6 (4.20-5.60); RED CELL DISTRIBUTION WIDTH 15.7 % (11.5-14.5); WHITE BLOOD COUNT 9.5 X10'3 (4.5-11.0)
[2023-11-20 12:22] LABS: BASOPHILS % (AUTO) 0.2 % (0-1); EOSINOPHILS % (AUTO) 0.2 % (0-6); HEMATOCRIT 32.2 % (35.0-45.0); HEMOGLOBIN 10.9 g/dl (12.0-16.0); LYMPHOCYTES # (AUTO) 1.7 X10'3 (1.1-4.8); LYMPHOCYTES % (AUTO) 15.3 % (21-51); MEAN CORPUSCULAR HEMOGLOBIN 28.6 PG (27.0-31.0); MEAN PLATELET VOLUME 8.1 FL (7.4-10.4); MONOCYTES % (AUTO) 9.5 % (2-12); NEUTROPHILS # (AUTO) 8.2 X10'3 (1.8-7.7); NEUTROPHILS % (AUTO) 74.8 % (42-75); PLATELET COUNT 102 X10'3 (140-440); RED BLOOD COUNT 3.83 X10'6 (4.20-5.60); RED CELL DISTRIBUTION WIDTH 15.7 % (11.5-14.5); WHITE BLOOD COUNT 10.9 X10'3 (4.5-11.0)
[2023-11-20] MEDS: hydrALAZINE 20mg/ml inj. IV PRN (19:25)
[2023-11-21] VITALS (31 sets, daily range): BP systolic 118–168; BP diastolic 50–87; PULSE 74–103; RESP 10–22; O2SAT 92–100
[2023-11-21 02:35] LABS: BASOPHILS % (AUTO) 0.1 % (0-1); EOSINOPHILS # (AUTO) 0.1 X10'3 (0-0.9); EOSINOPHILS % (AUTO) 0.8 % (0-6); HEMOGLOBIN 11.1 g/dl (12.0-16.0); LYMPHOCYTES # (AUTO) 1.1 X10'3 (1.1-4.8); MEAN CORPUSCULAR HEMOGLOBIN 27.7 PG (27.0-31.0); MEAN CORPUSCULAR HGB CONC 32.6 g/dL (33.0-36.5); MEAN CORPUSCULAR VOLUME 84.9 FL (78-98); MEAN PLATELET VOLUME 8.3 FL (7.4-10.4); MONOCYTES % (AUTO) 7.4 % (2-12); NEUTROPHILS # (AUTO) 11.3 X10'3 (1.8-7.7); NEUTROPHILS % (AUTO) 83.7 % (42-75); PLATELET COUNT 110 X10'3 (140-440); RED CELL DISTRIBUTION WIDTH 16.1 % (11.5-14.5); WHITE BLOOD COUNT 13.5 X10'3 (4.5-11.0)
[2023-11-21 02:54] LABS: ALBUMIN 2.5 G/DL (3.4-5.0); ANION GAP 8 (8-16); BLOOD UREA NITROGEN 6 MG/DL (7-18); BUN/CREATININE RATIO 9.5 (10.0-20.0); CALCIUM 7.6 MG/DL (8.5-10.1); CHLORIDE 104 MMOL/L (99-107); CREATININE 0.63 MG/DL (0.40-0.90); GLUCOSE 131 MG/DL (70-104); POTASSIUM 4.6 MMOL/L (3.5-5.1); SODIUM 134 MMOL/L (135-145); TOTAL CARBON DIOXIDE 22.4 MMOL/L (24-32); eCRCL 42 ML/MIN; eGFR 90 ML/MIN
[2023-11-21 11:18] LABS: MAGNESIUM 1.3 MG/DL (1.5-2.4); PHOSPHORUS 2.6 MG/DL (2.3-4.5)
[2023-11-21] MEDS ORDERED: heparin 10,000 units/1 ML INJ ONE (14:08)
[2023-11-21] MEDS ORDERED: midazolam 1 mg/ML 2ml injection ONE (14:16)
[2023-11-21] MEDS ORDERED: fentaNYL /PF 50mcg/ml 5ml ampule ONE (14:17)
[2023-11-21] MEDS ORDERED: LIDOcaine 1%/PF 5ML 10 MG/ML VIAL ONE (14:18)
[2023-11-21] MEDS ORDERED: rocuronium 10mg/ml inj IV ONE (14:19)
[2023-11-21] MEDS ORDERED: ePHEDrine 50MG/ML INJ. ONE (14:37)
[2023-11-21] MEDS ORDERED: desflurane 240ml liquid inh. IH ONE (14:37)
[2023-11-21] MEDS ORDERED: propofol 10mg/ml 20ml vial IV ONE (14:37)
[2023-11-21] MEDS ORDERED: albumin (Human) 5% 250ml 250 ML IV ONE (15:03)
[2023-11-21] MEDS: vancomycin/NS 1 GM ADD-VANTAGE 250 ML X 1 DOSE IV ONE (15:25)
[2023-11-21] MEDS: heparin 10,000 units/1 ML INJ IR ONE (15:33)
[2023-11-21] MEDS ORDERED: sugammadex 200mg/2ml injection IV ONE (15:47)
[2023-11-22] VITALS (19 sets, daily range): BP systolic 108–169; BP diastolic 40–71; PULSE 69–100; RESP 10–20; TEMP 97.3–98.8; O2SAT 95–99
[2023-11-22] MEDS: ceFAZolin/D5W- 1GM premix 50 ML IV SCH (01:08)
[2023-11-22 02:21] LABS: BASOPHILS % (AUTO) 0.2 % (0-1); EOSINOPHILS # (AUTO) 0.2 X10'3 (0-0.9); EOSINOPHILS % (AUTO) 2.3 % (0-6); HEMATOCRIT 30.2 % (35.0-45.0); LYMPHOCYTES % (AUTO) 9.5 % (21-51); MEAN CORPUSCULAR HEMOGLOBIN 28.4 PG (27.0-31.0); MEAN CORPUSCULAR VOLUME 85.9 FL (78-98); MEAN PLATELET VOLUME 8.1 FL (7.4-10.4); MONOCYTES # (AUTO) 0.9 X10'3 (0-0.9); MONOCYTES % (AUTO) 8.2 % (2-12); NEUTROPHILS # (AUTO) 8.6 X10'3 (1.8-7.7); NEUTROPHILS % (AUTO) 79.8 % (42-75); PLATELET COUNT 143 X10'3 (140-440); RED BLOOD COUNT 3.51 X10'6 (4.20-5.60); RED CELL DISTRIBUTION WIDTH 15.7 % (11.5-14.5); WHITE BLOOD COUNT 10.8 X10'3 (4.5-11.0)
[2023-11-22 02:33] LABS: ALBUMIN 2.4 G/DL (3.4-5.0); ANION GAP 7 (8-16); BLOOD UREA NITROGEN 4 MG/DL (7-18); CALCIUM 7.4 MG/DL (8.5-10.1); CHLORIDE 102 MMOL/L (99-107); GLUCOSE 122 MG/DL (70-104); POTASSIUM 4.4 MMOL/L (3.5-5.1); SODIUM 131 MMOL/L (135-145); TOTAL CARBON DIOXIDE 22.5 MMOL/L (24-32); eCRCL 53 ML/MIN; eGFR > 90 ML/MIN
[2023-11-23 07:26] VITALS: BP 116/61; PULSE 76; RESP 16; TEMP 98.5; O2SAT 98
[2023-11-23 10:21] VITALS: BP 130/64; PULSE 82; RESP 14; TEMP 98.4; O2SAT 94
[2023-11-23 18:00] VITALS: BP 128/67; PULSE 97; RESP 16; TEMP 98.6; O2SAT 97
[2023-11-23] MEDS: lactose-reduced food (Ensure Enlive) - 237ml bottle PO SCH (18:05)
[2023-11-23 22:00] VITALS: BP 104/58; PULSE 67; RESP 17; TEMP 98.9; O2SAT 95
[2023-11-24 08:00] VITALS: RESP 18; O2SAT 97
[2023-11-24 08:09] LABS: BASOPHILS # (AUTO) 0.1 X10'3 (0-0.2); BASOPHILS % (AUTO) 0.7 % (0-1); EOSINOPHILS # (AUTO) 0.2 X10'3 (0-0.9); EOSINOPHILS % (AUTO) 2.6 % (0-6); HEMATOCRIT 28.9 % (35.0-45.0); HEMOGLOBIN 9.2 g/dl (12.0-16.0); LYMPHOCYTES # (AUTO) 1.1 X10'3 (1.1-4.8); LYMPHOCYTES % (AUTO) 12.7 % (21-51); MEAN CORPUSCULAR HEMOGLOBIN 28.1 PG (27.0-31.0); MEAN CORPUSCULAR HGB CONC 31.9 g/dL (33.0-36.5); MEAN PLATELET VOLUME 7.2 FL (7.4-10.4); MONOCYTES # (AUTO) 0.9 X10'3 (0-0.9); MONOCYTES % (AUTO) 10.3 % (2-12); NEUTROPHILS # (AUTO) 6.4 X10'3 (1.8-7.7); NEUTROPHILS % (AUTO) 73.7 % (42-75); PLATELET COUNT 229 X10'3 (140-440); RED BLOOD COUNT 3.29 X10'6 (4.20-5.60); RED CELL DISTRIBUTION WIDTH 15.9 % (11.5-14.5); WHITE BLOOD COUNT 8.6 X10'3 (4.5-11.0)
[2023-11-24 08:26] LABS: ALBUMIN 2.3 G/DL (3.4-5.0); ANION GAP 9 (8-16); BLOOD UREA NITROGEN 6 MG/DL (7-18); BUN/CREATININE RATIO 9.1 (10.0-20.0); CALCIUM 7.7 MG/DL (8.5-10.1); CHLORIDE 101 MMOL/L (99-107); CREATININE 0.66 MG/DL (0.40-0.90); GLUCOSE 103 MG/DL (70-104); POTASSIUM 4.2 MMOL/L (3.5-5.1); SODIUM 131 MMOL/L (135-145); TOTAL CARBON DIOXIDE 21.2 MMOL/L (24-32); eCRCL 40 ML/MIN; eGFR 85 ML/MIN
[2023-11-24 18:00] VITALS: BP 127/58; PULSE 66; RESP 16; TEMP 98.4; O2SAT 99
[2023-11-24 20:00] VITALS: RESP 16; O2SAT 99
[2023-11-24 22:00] VITALS: BP_SYST 107; BP_SYST 137; BP_DIAS 50; BP_DIAS 59; PULSE 52; PULSE 92; RESP 16; TEMP 98.1; TEMP 98.6; O2SAT 92; O2SAT 99
[2023-11-25 06:39] VITALS: BP 123/60; PULSE 85; RESP 18; TEMP 98.4; O2SAT 93
[2023-11-25 08:00] VITALS: RESP 16; O2SAT 98
[2023-11-25 10:00] VITALS: BP 110/53; PULSE 90; RESP 14; TEMP 98.1; O2SAT 97
[2023-11-25 18:00] VITALS: BP 153/68; PULSE 92; RESP 12; TEMP 98.3; O2SAT 92
[2023-11-25 19:50] VITALS: RESP 16; O2SAT 92
[2023-11-25 22:00] VITALS: BP 128/64; PULSE 80; RESP 18; TEMP 98.4; O2SAT 94
[2023-11-26 06:00] VITALS: BP 147/78; PULSE 84; RESP 16; TEMP 98.3; O2SAT 99
[2023-11-26 18:00] VITALS: BP 137/60; PULSE 86; RESP 14; TEMP 99.4; O2SAT 100
[2023-11-26 19:55] VITALS: RESP 14; O2SAT 100
[2023-11-26 22:00] VITALS: BP 142/69; PULSE 93; RESP 16; TEMP 98.2; O2SAT 95
[2023-11-26] MEDS: oxyCODONE/APAP 5-325mg tablet PO PRN (22:30)
[2023-11-27 06:00] VITALS: BP 146/58; PULSE 89; RESP 12; TEMP 97.9; O2SAT 99
[2023-11-27 10:00] VITALS: BP 113/68; PULSE 84; RESP 16; TEMP 98.2; O2SAT 97
[2023-11-27 18:00] VITALS: BP 141/57; PULSE 82; RESP 16; TEMP 97.9; O2SAT 98
[2023-11-27 19:45] VITALS: RESP 16; O2SAT 98
[2023-11-27 22:00] VITALS: BP 131/65; PULSE 82; RESP 18; TEMP 98; O2SAT 96
[2023-11-28 06:00] VITALS: BP 136/67; PULSE 83; RESP 16; TEMP 97.9; O2SAT 98
[2023-11-28 10:00] VITALS: BP 112/37; PULSE 66; RESP 16; TEMP 98.6; O2SAT 95
[2023-11-28 18:00] VITALS: BP 163/68; PULSE 94; RESP 16; TEMP 98.2; O2SAT 95
[2023-11-28 20:30] VITALS: RESP 16; O2SAT 95
[2023-11-28] MEDS: oxyCODONE/APAP 5-325mg tablet PO PRN (20:46)
[2023-11-28 22:00] VITALS: BP 129/48; PULSE 89; RESP 16; TEMP 98.3; O2SAT 98
[2023-11-29] VITALS (8 sets, daily range): BP systolic 129–153; BP diastolic 37–61; PULSE 61–97; RESP 13–16; TEMP 98.1–98.8; O2SAT 97–100
[2023-11-29 08:43] LABS: BASOPHILS # (AUTO) 0.1 X10'3 (0-0.2); BASOPHILS % (AUTO) 0.6 % (0-1); EOSINOPHILS # (AUTO) 0.2 X10'3 (0-0.9); LYMPHOCYTES # (AUTO) 0.8 X10'3 (1.1-4.8); LYMPHOCYTES % (AUTO) 9.1 % (21-51); MEAN CORPUSCULAR HEMOGLOBIN 29.7 PG (27.0-31.0); MONOCYTES # (AUTO) 0.7 X10'3 (0-0.9); MONOCYTES % (AUTO) 7.5 % (2-12); NEUTROPHILS # (AUTO) 7.2 X10'3 (1.8-7.7); NEUTROPHILS % (AUTO) 80.8 % (42-75); PLATELET COUNT 350 X10'3 (140-440); RED BLOOD COUNT 2.27 X10'6 (4.20-5.60); RED CELL DISTRIBUTION WIDTH 18.3 % (11.5-14.5); WHITE BLOOD COUNT 8.9 X10'3 (4.5-11.0)
[2023-11-29 08:49] LABS: HEMOGLOBIN 6.7 g/dl (12.0-16.0)
[2023-11-29 08:50] LABS: HEMATOCRIT 20.4 % (35.0-45.0)
[2023-11-29 08:51] LABS: INR 1.3 INR; PROTHROMBIN TIME 13.7 SECONDS (9.0-12.0)
[2023-11-29 11:11] LABS: ALBUMIN 2.1 G/DL (3.4-5.0); ALBUMIN/GLOBULIN RATIO 0.8 (1.1-1.5); ALKALINE PHOSPHATASE 84 IU/L (46-116); ANION GAP 2 (8-16); ASPARTATE AMINO TRANSFERASE 15 U/L (10-37); BILIRUBIN,TOTAL 0.8 MG/DL (0.1-1.0); BLOOD UREA NITROGEN 8 MG/DL (7-18); BUN/CREATININE RATIO 14.5 (10.0-20.0); CALCIUM 7.3 MG/DL (8.5-10.1); CHLORIDE 100 MMOL/L (99-107); CREATININE 0.55 MG/DL (0.40-0.90); GLUCOSE 343 MG/DL (70-104); POTASSIUM 5.2 MMOL/L (3.5-5.1); SODIUM 127 MMOL/L (135-145); TOTAL CARBON DIOXIDE 24.6 MMOL/L (24-32); TOTAL PROTEIN 4.9 G/DL (6.4-8.2); eCRCL 48 ML/MIN; eGFR > 90 ML/MIN
[2023-11-29 11:17] LABS: ALANINE AMINOTRANSFERASE 6 U/L (12-78)
[2023-11-29 15:11] LABS: HEMOGLOBIN 7.2 g/dl (12.0-16.0); MEAN CORPUSCULAR HEMOGLOBIN 29.5 PG (27.0-31.0); MEAN CORPUSCULAR HGB CONC 32.5 g/dL (33.0-36.5); MEAN CORPUSCULAR VOLUME 90.5 FL (78-98); MEAN PLATELET VOLUME 6.9 FL (7.4-10.4); PLATELET COUNT 377 X10'3 (140-440); RED BLOOD COUNT 2.43 X10'6 (4.20-5.60); RED CELL DISTRIBUTION WIDTH 19.3 % (11.5-14.5); WHITE BLOOD COUNT 9.3 X10'3 (4.5-11.0)
[2023-11-29 19:08] LABS: BASOPHILS # (AUTO) 0.1 X10'3 (0-0.2); BASOPHILS % (AUTO) 1.1 % (0-1); EOSINOPHILS # (AUTO) 0.3 X10'3 (0-0.9); EOSINOPHILS % (AUTO) 3.5 % (0-6); HEMATOCRIT 22.9 % (35.0-45.0); HEMOGLOBIN 7.4 g/dl (12.0-16.0); LYMPHOCYTES # (AUTO) 0.9 X10'3 (1.1-4.8); MEAN CORPUSCULAR HEMOGLOBIN 29.3 PG (27.0-31.0); MEAN CORPUSCULAR HGB CONC 32.5 g/dL (33.0-36.5); MEAN CORPUSCULAR VOLUME 90.3 FL (78-98); MEAN PLATELET VOLUME 6.9 FL (7.4-10.4); MONOCYTES # (AUTO) 0.6 X10'3 (0-0.9); MONOCYTES % (AUTO) 7.4 % (2-12); NEUTROPHILS # (AUTO) 6.7 X10'3 (1.8-7.7); PLATELET COUNT 405 X10'3 (140-440); RED BLOOD COUNT 2.53 X10'6 (4.20-5.60); RED CELL DISTRIBUTION WIDTH 19.5 % (11.5-14.5); WHITE BLOOD COUNT 8.6 X10'3 (4.5-11.0)
[2023-11-29 22:11] LABS: ANISOCYTOSIS 2+; BURR CELLS FEW; PLATELET ESTIMATE NORMAL
[2023-11-29 22:12] LABS: POLYCHROMASIA FEW
[2023-11-30] VITALS (14 sets, daily range): BP systolic 124–156; BP diastolic 42–70; PULSE 61–92; RESP 13–18; TEMP 98–98.9; O2SAT 95–99
[2023-11-30 07:39] LABS: BASOPHILS # (AUTO) 0.1 X10'3 (0-0.2); BASOPHILS % (AUTO) 1.1 % (0-1); EOSINOPHILS # (AUTO) 0.3 X10'3 (0-0.9); EOSINOPHILS % (AUTO) 4.2 % (0-6); LYMPHOCYTES # (AUTO) 0.9 X10'3 (1.1-4.8); LYMPHOCYTES % (AUTO) 12.8 % (21-51); MEAN CORPUSCULAR HEMOGLOBIN 29.5 PG (27.0-31.0); MEAN CORPUSCULAR HGB CONC 32.4 g/dL (33.0-36.5); MEAN CORPUSCULAR VOLUME 91.1 FL (78-98); MEAN PLATELET VOLUME 6.7 FL (7.4-10.4); MONOCYTES # (AUTO) 0.6 X10'3 (0-0.9); MONOCYTES % (AUTO) 8.3 % (2-12); NEUTROPHILS # (AUTO) 5.2 X10'3 (1.8-7.7); NEUTROPHILS % (AUTO) 73.6 % (42-75); PLATELET COUNT 377 X10'3 (140-440); RED BLOOD COUNT 2.37 X10'6 (4.20-5.60); RED CELL DISTRIBUTION WIDTH 20.5 % (11.5-14.5); WHITE BLOOD COUNT 7.1 X10'3 (4.5-11.0)
[2023-11-30 07:44] LABS: HEMATOCRIT 21.6 % (35.0-45.0)
[2023-11-30 07:52] LABS: INR 1.3 INR; PROTHROMBIN TIME 13.5 SECONDS (9.0-12.0)
[2023-11-30 08:13] LABS: ALBUMIN 2.3 G/DL (3.4-5.0); ALBUMIN/GLOBULIN RATIO 0.7 (1.1-1.5); ALKALINE PHOSPHATASE 92 IU/L (46-116); ANION GAP 3 (8-16); ASPARTATE AMINO TRANSFERASE 15 U/L (10-37); BILIRUBIN,TOTAL 0.9 MG/DL (0.1-1.0); BLOOD UREA NITROGEN 9 MG/DL (7-18); BUN/CREATININE RATIO 16.4 (10.0-20.0); CALCIUM 7.4 MG/DL (8.5-10.1); CHLORIDE 102 MMOL/L (99-107); CREATININE 0.55 MG/DL (0.40-0.90); GLUCOSE 93 MG/DL (70-104); POTASSIUM 4.2 MMOL/L (3.5-5.1); SODIUM 135 MMOL/L (135-145); TOTAL CARBON DIOXIDE 30.1 MMOL/L (24-32); TOTAL PROTEIN 5.5 G/DL (6.4-8.2); eCRCL 48 ML/MIN; eGFR > 90 ML/MIN
[2023-11-30 09:04] LABS: ALANINE AMINOTRANSFERASE < 6 U/L (12-78)
[2023-11-30 19:04] LABS: HEMATOCRIT 26.8 % (35.0-45.0); MEAN CORPUSCULAR HEMOGLOBIN 30.6 PG (27.0-31.0); MEAN CORPUSCULAR HGB CONC 33.4 g/dL (33.0-36.5); MEAN CORPUSCULAR VOLUME 91.5 FL (78-98); MEAN PLATELET VOLUME 6.9 FL (7.4-10.4); PLATELET COUNT 334 X10'3 (140-440); RED BLOOD COUNT 2.93 X10'6 (4.20-5.60); RED CELL DISTRIBUTION WIDTH 19.3 % (11.5-14.5); WHITE BLOOD COUNT 7.3 X10'3 (4.5-11.0)
[2023-12-01 06:00] VITALS: BP 143/62; PULSE 86; RESP 14; TEMP 97.7; O2SAT 97
[2023-12-01] MEDS: hydrALAZINE 20mg/ml inj. IV ONE (10:29)
[2023-12-01 11:15] VITALS: BP 128/74
[2023-12-01] MEDS ORDERED: hydrALAZINE 20mg/ml inj. IV PRN (13:50)
[2023-12-01] MEDS: hydrALAZINE 20mg/ml inj. IV SCH (14:08)
[2023-12-01 15:51] LABS: BASOPHILS # (AUTO) 0.1 X10'3 (0-0.2); BASOPHILS % (AUTO) 0.7 % (0-1); EOSINOPHILS % (AUTO) 0.1 % (0-6); HEMATOCRIT 23.8 % (35.0-45.0); HEMOGLOBIN 7.9 g/dl (12.0-16.0); LYMPHOCYTES # (AUTO) 0.3 X10'3 (1.1-4.8); LYMPHOCYTES % (AUTO) 2.6 % (21-51); MEAN CORPUSCULAR HEMOGLOBIN 30.8 PG (27.0-31.0); MEAN CORPUSCULAR HGB CONC 33.1 g/dL (33.0-36.5); MEAN CORPUSCULAR VOLUME 92.9 FL (78-98); MONOCYTES # (AUTO) 0.5 X10'3 (0-0.9); NEUTROPHILS # (AUTO) 10.8 X10'3 (1.8-7.7); NEUTROPHILS % (AUTO) 92.6 % (42-75); PLATELET COUNT 369 X10'3 (140-440); RED BLOOD COUNT 2.56 X10'6 (4.20-5.60); RED CELL DISTRIBUTION WIDTH 19.9 % (11.5-14.5); WHITE BLOOD COUNT 11.6 X10'3 (4.5-11.0)
[2023-12-01 16:13] LABS: PLATELET ESTIMATE NORMAL
[2023-12-01 16:14] LABS: ANISOCYTOSIS 2+; HYPOCHROMASIA 1+; POIKILOCYTOSIS 1+; POLYCHROMASIA 1+
[2023-12-01 18:00] VITALS: BP_SYST 109; BP_SYST 99; BP_DIAS 48; BP_DIAS 50; PULSE 101; PULSE 111; RESP 17; RESP 22; TEMP 98.1; TEMP 98.4; O2SAT 90; O2SAT 96
[2023-12-01 20:00] VITALS: RESP 17; O2SAT 96
[2023-12-01] MEDS ORDERED: apixaban 5mg tablet PO SCH (20:00)
[2023-12-01 22:00] VITALS: BP 93/57; PULSE 110; RESP 16; TEMP 98.2; O2SAT 96
[2023-12-02] VITALS (10 sets, daily range): BP systolic 91–143; BP diastolic 50–97; PULSE 90–113; RESP 15–20; TEMP 96.8–99.2; O2SAT 96–99
[2023-12-02] MEDS: dextrose 5%-normal saline 1,000 ML IV SCH (01:55)
[2023-12-02] MEDS: normal saline 500ml IV soln 500 ML IV ONE (01:55)
[2023-12-02 08:58] LABS: BASOPHILS # (AUTO) 0.1 X10'3 (0-0.2); BASOPHILS % (AUTO) 0.5 % (0-1); EOSINOPHILS % (AUTO) 0.1 % (0-6); HEMATOCRIT 27.8 % (35.0-45.0); HEMOGLOBIN 9.1 g/dl (12.0-16.0); LYMPHOCYTES # (AUTO) 1.4 X10'3 (1.1-4.8); LYMPHOCYTES % (AUTO) 12.6 % (21-51); MEAN CORPUSCULAR HEMOGLOBIN 30.9 PG (27.0-31.0); MEAN CORPUSCULAR HGB CONC 32.5 g/dL (33.0-36.5); MEAN CORPUSCULAR VOLUME 94.8 FL (78-98); MEAN PLATELET VOLUME 6.9 FL (7.4-10.4); MONOCYTES # (AUTO) 0.7 X10'3 (0-0.9); MONOCYTES % (AUTO) 6.3 % (2-12); NEUTROPHILS # (AUTO) 9.1 X10'3 (1.8-7.7); NEUTROPHILS % (AUTO) 80.5 % (42-75); PLATELET COUNT 306 X10'3 (140-440); RED BLOOD COUNT 2.94 X10'6 (4.20-5.60); RED CELL DISTRIBUTION WIDTH 18.5 % (11.5-14.5); WHITE BLOOD COUNT 11.3 X10'3 (4.5-11.0)
[2023-12-02] MEDS: apixaban 2.5mg tablet PO SCH (13:05)
[2023-12-03] VITALS (7 sets, daily range): BP systolic 113–135; BP diastolic 53–71; PULSE 88–104; RESP 15–20; TEMP 97.7–99; O2SAT 96–100
[2023-12-03 13:56] LABS: BASOPHILS % (AUTO) 0.7 % (0-1); EOSINOPHILS # (AUTO) 0.1 X10'3 (0-0.9); HEMATOCRIT 22.1 % (35.0-45.0); HEMOGLOBIN 7.5 g/dl (12.0-16.0); LYMPHOCYTES # (AUTO) 0.7 X10'3 (1.1-4.8); LYMPHOCYTES % (AUTO) 10.4 % (21-51); MEAN CORPUSCULAR HEMOGLOBIN 31.9 PG (27.0-31.0); MEAN CORPUSCULAR HGB CONC 33.7 g/dL (33.0-36.5); MEAN CORPUSCULAR VOLUME 94.5 FL (78-98); MEAN PLATELET VOLUME 6.8 FL (7.4-10.4); MONOCYTES # (AUTO) 0.5 X10'3 (0-0.9); NEUTROPHILS # (AUTO) 5.2 X10'3 (1.8-7.7); NEUTROPHILS % (AUTO) 78.9 % (42-75); PLATELET COUNT 262 X10'3 (140-440); RED BLOOD COUNT 2.34 X10'6 (4.20-5.60); RED CELL DISTRIBUTION WIDTH 20.4 % (11.5-14.5); WHITE BLOOD COUNT 6.6 X10'3 (4.5-11.0)
[2023-12-03 14:15] LABS: ANISOCYTOSIS 3+; PLATELET ESTIMATE NORMAL; POLYCHROMASIA 1+
[2023-12-04] VITALS (14 sets, daily range): BP systolic 116–166; BP diastolic 61–73; PULSE 51–97; RESP 14–17; TEMP 97.7–99.2; O2SAT 97–99
[2023-12-04 07:18] LABS: LYMPHOCYTES % (AUTO) 13.6 % (21-51); MEAN CORPUSCULAR HEMOGLOBIN 31.8 PG (27.0-31.0); MEAN CORPUSCULAR HGB CONC 33.3 g/dL (33.0-36.5); MEAN CORPUSCULAR VOLUME 95.4 FL (78-98); MEAN PLATELET VOLUME 6.9 FL (7.4-10.4); NEUTROPHILS % (AUTO) 69.5 % (42-75); PLATELET COUNT 222 X10'3 (140-440); RED BLOOD COUNT 1.97 X10'6 (4.20-5.60); RED CELL DISTRIBUTION WIDTH 20.5 % (11.5-14.5); WHITE BLOOD COUNT 4.6 X10'3 (4.5-11.0)
[2023-12-04 07:19] LABS: BASOPHILS # (AUTO) 0.1 X10'3 (0-0.2); BASOPHILS % (AUTO) 2.2 % (0-1); EOSINOPHILS # (AUTO) 0.2 X10'3 (0-0.9); EOSINOPHILS % (AUTO) 5.1 % (0-6); LYMPHOCYTES # (AUTO) 0.6 X10'3 (1.1-4.8); MONOCYTES # (AUTO) 0.4 X10'3 (0-0.9); MONOCYTES % (AUTO) 9.6 % (2-12); NEUTROPHILS # (AUTO) 3.2 X10'3 (1.8-7.7)
[2023-12-04 07:24] LABS: HEMOGLOBIN 6.3 g/dl (12.0-16.0)
[2023-12-04 07:25] LABS: HEMATOCRIT 18.8 % (35.0-45.0)
[2023-12-04 17:39] LABS: HEMOGLOBIN 8.3 g/dl (12.0-16.0); MEAN CORPUSCULAR HEMOGLOBIN 31.2 PG (27.0-31.0); MEAN CORPUSCULAR HGB CONC 33.2 g/dL (33.0-36.5); MEAN CORPUSCULAR VOLUME 94.1 FL (78-98); MEAN PLATELET VOLUME 7.1 FL (7.4-10.4); PLATELET COUNT 242 X10'3 (140-440); RED BLOOD COUNT 2.66 X10'6 (4.20-5.60); RED CELL DISTRIBUTION WIDTH 19.7 % (11.5-14.5); WHITE BLOOD COUNT 5.6 X10'3 (4.5-11.0)
[2023-12-05 01:10] VITALS: BP 168/88; PULSE 82; RESP 18; TEMP 97.6; O2SAT 99
[2023-12-05 02:15] VITALS: BP 139/70; PULSE 84
[2023-12-05 04:53] VITALS: BP 154/78; PULSE 85
[2023-12-05 06:00] VITALS: BP 127/65; PULSE 89; RESP 16; TEMP 97.3; O2SAT 95
[2023-12-05 09:49] LABS: BASOPHILS # (AUTO) 0.1 X10'3 (0-0.2); BASOPHILS % (AUTO) 1.5 % (0-1); EOSINOPHILS # (AUTO) 0.2 X10'3 (0-0.9); EOSINOPHILS % (AUTO) 3.5 % (0-6); HEMATOCRIT 28.1 % (35.0-45.0); HEMOGLOBIN 9.3 g/dl (12.0-16.0); LYMPHOCYTES # (AUTO) 0.4 X10'3 (1.1-4.8); LYMPHOCYTES % (AUTO) 7.5 % (21-51); MEAN CORPUSCULAR HEMOGLOBIN 31.8 PG (27.0-31.0); MEAN CORPUSCULAR VOLUME 96.1 FL (78-98); MEAN PLATELET VOLUME 7.1 FL (7.4-10.4); MONOCYTES # (AUTO) 0.5 X10'3 (0-0.9); NEUTROPHILS # (AUTO) 4.4 X10'3 (1.8-7.7); NEUTROPHILS % (AUTO) 78.5 % (42-75); PLATELET COUNT 248 X10'3 (140-440); RED BLOOD COUNT 2.93 X10'6 (4.20-5.60); RED CELL DISTRIBUTION WIDTH 21.7 % (11.5-14.5); WHITE BLOOD COUNT 5.6 X10'3 (4.5-11.0)
[2023-12-05 10:00] VITALS: BP 118/58; PULSE 87; RESP 16; TEMP 98.4; O2SAT 97
[2023-12-05 10:21] LABS: ANISOCYTOSIS 3+; PLATELET ESTIMATE NORMAL
[2023-12-05 20:00] VITALS: RESP 18; O2SAT 96
[2023-12-06 07:01] LABS: BASOPHILS # (AUTO) 0.1 X10'3 (0-0.2); BASOPHILS % (AUTO) 1.1 % (0-1); EOSINOPHILS # (AUTO) 0.3 X10'3 (0-0.9); EOSINOPHILS % (AUTO) 5.6 % (0-6); HEMATOCRIT 28.5 % (35.0-45.0); HEMOGLOBIN 9.2 g/dl (12.0-16.0); LYMPHOCYTES # (AUTO) 0.7 X10'3 (1.1-4.8); LYMPHOCYTES % (AUTO) 13.8 % (21-51); MEAN CORPUSCULAR HEMOGLOBIN 31.4 PG (27.0-31.0); MEAN CORPUSCULAR HGB CONC 32.3 g/dL (33.0-36.5); MEAN CORPUSCULAR VOLUME 97.2 FL (78-98); MEAN PLATELET VOLUME 7.1 FL (7.4-10.4); MONOCYTES # (AUTO) 0.6 X10'3 (0-0.9); MONOCYTES % (AUTO) 11.3 % (2-12); NEUTROPHILS # (AUTO) 3.5 X10'3 (1.8-7.7); NEUTROPHILS % (AUTO) 68.2 % (42-75); PLATELET COUNT 288 X10'3 (140-440); RED BLOOD COUNT 2.93 X10'6 (4.20-5.60); RED CELL DISTRIBUTION WIDTH 22.4 % (11.5-14.5); WHITE BLOOD COUNT 5.2 X10'3 (4.5-11.0)
[2023-12-06 07:03] VITALS: BP 155/79; PULSE 88; RESP 16; TEMP 98.7; O2SAT 98
[2023-12-06 07:37] VITALS: BP 142/74; PULSE 107
[2023-12-06 12:19] VITALS: BP 151/63; PULSE 84; RESP 14; TEMP 98.3; O2SAT 98
[2023-12-06 12:31] VITALS: BP_SYST 151
[2023-12-08] MEDS ORDERED: LOPE-190 PO (17:52)
[2023-12-14] MEDS ORDERED: CLOP75TA34 PO (10:41)
[2023-12-14] MEDS ORDERED: NOR5T PO (10:41)
[2023-12-14] MEDS ORDERED: PHEN15SP NS (10:56)
== END 2023-12-06 16:25 | disposition home health service (06) | DRG 252 ==
LOC: PAS IN 06:44 → CICU 2S 18:10 → ICU 2S 11-20 09:30 → ORTHO 4S 11-22 16:11
PROVIDERS: ADMIT Surgery; ATTEND Surgery
PROC: 041K0JM Bypass Right Femoral Artery to Peroneal Artery with Synthetic Substitute, Open Approach (ICD-10-PCS; 2023-11-17)
PROC: 04CT0ZZ Extirpation of Matter from Right Peroneal Artery, Open Approach (ICD-10-PCS; 2023-11-17)
PROC: 04CK0ZZ Extirpation of Matter from Right Femoral Artery, Open Approach (ICD-10-PCS; 2023-11-17)
PROC: 061 Lower Veins, Bypass (ICD-10-PCS; 2023-11-17)
PROC: B41F1ZZ Fluoroscopy of Right Lower Extremity Arteries using Low Osmolar Contrast (ICD-10-PCS; 2023-11-17)
PROC: 4A02XM4 Measurement of Cardiac Total Activity, External Approach (ICD-10-PCS; 2023-11-17)
PROC: 3E073KZ Introduction of Other Diagnostic Substance into Coronary Artery, Percutaneous Approach (ICD-10-PCS; 2023-11-17)
PROC: 30233N1 Transfusion of Nonautologous Red Blood Cells into Peripheral Vein, Percutaneous Approach (ICD-10-PCS; 2023-11-17)
PROC: B4201ZZ Computerized Tomography (CT Scan) of Abdominal Aorta using Low Osmolar Contrast (ICD-10-PCS; 2023-11-18)
PROC: B42H1ZZ Computerized Tomography (CT Scan) of Bilateral Lower Extremity Arteries using Low Osmolar Contrast (ICD-10-PCS; 2023-11-18)
PROC: B42H1ZZ Computerized Tomography (CT Scan) of Bilateral Lower Extremity Arteries using Low Osmolar Contrast (ICD-10-PCS; 2023-11-18)
PROC: 06C Lower Veins, Extirpation (ICD-10-PCS; principal; 2023-11-18 16:22)
PROC: 04WY0JZ Revision of Synthetic Substitute in Lower Artery, Open Approach (ICD-10-PCS; 2023-11-21)
PROC: 05HC33Z Insertion of Infusion Device into Left Basilic Vein, Percutaneous Approach (ICD-10-PCS; 2023-11-27)
PROC: 5A09357 Assistance with Respiratory Ventilation, Less than 24 Consecutive Hours, Continuous Positive Airway Pressure (ICD-10-PCS; 2023-12-01)
PROC: 5A09357 Assistance with Respiratory Ventilation, Less than 24 Consecutive Hours, Continuous Positive Airway Pressure (ICD-10-PCS; 2023-12-01)
PROC: CF141ZZ Planar Nuclear Medicine Imaging of Gallbladder using Technetium 99m (Tc-99m) (ICD-10-PCS; 2023-12-04)
DX: I73.9 Peripheral vascular disease, unspecified (principal); E43 Unspecified severe protein-calorie malnutrition; K92.2 Gastrointestinal hemorrhage, unspecified; M79.A21 Nontraumatic compartment syndrome of right lower extremity; Z68.1 Body mass index [BMI] 19.9 or less, adult; R04.0 Epistaxis; S91.104A Unspecified open wound of right lesser toe(s) without damage to nail, initial encounter; Y99.8 Other external cause status; M79.81 Nontraumatic hematoma of soft tissue
CPT/HCPCS: 36410; 36415; 36430; 36600; 71046; 73590; 75635; 76937; 77002; 78278; 78452; 80048; 80053; 82803; 82948; 83735; 84100; 85008; 85018; 85025; 85027; 85610; 85730; 86885; 86900; 86901; 86920; 87070; 87075; 87077; 87081; 87186; 88300; 92508; 92616; 93005; 93017; 93970; 97116; 97161; 97530; A4615; A4618; A5200; A6209; A6212; A6213; A6222; A6250; A6253; A6258; A6402; A6446; A6449; A6455; A7000; A9500; A9560; C1751; C1757; C1758; C1768; G0378; J0131; J0280; J0360; J0690; J1100; J1170; J1644; J2250; J2270; J2370; J2405; J2704; J2710; J2785; J3010; J3370; J3480; J3490; J7030; J7040; J7042; J7050; J7060; J7070; J7120; P9016; P9045; Q9967